=== PATIENT | female | born 1990 | race Caucasian/White ===

== ENCOUNTER 2018-10-21 10:00 | Day surgery (SDC) | payer OTHER, MEDICAID ==
[2018-10-21] MEDS ORDERED: LIDOCAINE 4% SOLUTION 50 ML BTL (11:05)
[2018-10-21] MEDS ORDERED: MIDAZOLAM 1 MG/ML 2 ML INJ ×2 (11:39)
[2018-10-21] MEDS ORDERED: FENTAnyl 50 MCG/ML VIAL (11:39)
== END 2018-10-21 15:59 | disposition home or self-care (01) ==
LOC: GIL 10:00
DX: K21.9 Gastro-esophageal reflux disease without esophagitis (principal); K29.50 Unspecified chronic gastritis without bleeding
CPT/HCPCS: 43239; 84703; 88305; 88313